=== PATIENT | male | born 1985 | race Caucasian/White ===

== ENCOUNTER 2016-11-13 17:07 | Emergency (ER) | payer MEDICAID ==
[~2016-11-13] VITALS: Ht 157.5 cm; Wt 73.0 kg
[2016-11-13 17:10] VITALS: Ht 157.5 cm; Wt 73.0 kg
--- NOTE | 2016-11-13 18:15 | RADRPT ---
PROCEDURE: XR Chest. CLINICAL INDICATION: Heart palpitations. TECHNIQUE: Single frontal view. COMPARISON: 10/12/2013. FINDINGS: The lungs are clear. The heart size is normal. There is no pleural effusion. There is no pneumothorax. IMPRESSION: 1. Normal chest radiograph. 2. No change from 10/12/2013. RPTAT: QQ .Javier Juan MD, MD Date Time Electronically viewed and signed by .Javier Juan MD, MD on 11/13/2016 18:15 .R/
--- NOTE | 2016-11-13 18:28 | ERD ---
ER Documentation Chief Complaint Date/Time DATE: 11/13/16 TIME: 18:27 Chief Complaint PALPITATIONS, HPI This is a 30-year-old male who presents to the emergency room for evaluation of heart palpitations. The patient does state that he smokes crystal methamphetamine frequently, and drinks alcohol. He states that today he also drank an energy drink. I advised the patient that all 3 of these things and causing palpitations. The patient came to the ER today for evaluation. ROS All systems reviewed and are negative except as per history of present illness. Allergies Allergies: Coded Allergies: No Known Allergy (Unverified , 10/12/13) PMhx/Soc Medical and Surgical Hx: pt denies Medical Hx, pt denies Surgical Hx Hx Alcohol Use: Yes Hx Substance Use: Yes (METH ) Hx Tobacco Use: Yes (QUIT 11/07) Smoking Status: Former smoker Physical Exam Vitals Vital Signs Date Time Temp Pulse Resp B/P Pulse Ox O2 Delivery O2 Flow Rate FiO2 11/13/16 17:10 98.1 104 18 144/84 100 Physical Exam Const: No acute distress Head: Atraumatic Eyes: Normal Conjunctiva ENT: Normal External Ears, Nose and Mouth. Neck: Full range of motion..~ No meningismus. Resp: Clear to auscultation bilaterally Cardio: Regular rate and rhythm, no murmurs Abd: Soft, non tender, non distended. Normal bowel sounds Skin: No petechiae or rashes Back: No midline or flank tenderness Ext: No cyanosis, or edema Neur: Awake and alert Psych: Normal Mood and Affect Procedures/MDM EKG: Rate/Rhythm: [Normal Sinus Rhythm] QRS, ST, T-waves: [No changes consistent w/ acute ischemia] Impression: [No evidence of ischemia or arrhythmia] Chest X-ray 1V Interpreted by me: Soft Tissue: No acute abnormalities Bones: No acute abnormalities Mediastinum/Cardiac Silhouette/Lungs: [No acute abnormalities] This 30-year-old male presents to the emergency room for heart palpitations. When I evaluated this patient he was hemodynamically stable, not tachycardic, not hypoxic. EKG reveals a normal sinus rhythm. The patient does state that he smokes crystal methamphetamine, trace alcohol, and did drink an energy drink this morning. I advised him that all 3 disease can cause palpitations and he needs to stop doing all 3 of them. The patient verbalized understanding. Chest x-ray was also obtained which does not show any pneumothorax. The patient is hemodynamically stable will be discharged home at this time. Smoking Cessation Therapy: Pt. was lectured for greater than 3 minutes on the health risks of continued smoking and the benefits of cessation. Departure Diagnosis: Primary Impression: Palpitations Additional Impressions: Tobacco abuse Tobacco abuse counseling Condition: Stable CHAPARRO WHITLEY DO November 13, 2016 18:28
== END 2016-11-13 18:56 | disposition home or self-care (01) ==
LOC: FTE 17:07
DX: R00.2 Palpitations (principal); F17.210 Nicotine dependence, cigarettes, uncomplicated; Z71.6 Tobacco abuse counseling
CPT/HCPCS: 71010; 93005; Z7502

== ENCOUNTER 2016-12-12 16:26 | Emergency (ER) | payer SELFPAY ==
[~2016-12-12] VITALS: Ht 167.6 cm; Wt 74.0 kg
[2016-12-12 16:35] VITALS: Ht 167.6 cm; Wt 74.0 kg
== END 2016-12-12 20:29 | disposition left against medical advice (07) ==
LOC: FTE 16:26
DX: Z53.21 Procedure and treatment not carried out due to patient leaving prior to being seen by health care provider (principal)

== ENCOUNTER 2016-12-14 11:38 | Emergency (ER) | payer MEDICAID ==
[~2016-12-14] VITALS: Ht 165.1 cm; Wt 74.0 kg
[2016-12-14 11:56] VITALS: Ht 165.1 cm; Wt 74.0 kg
--- NOTE | 2016-12-14 12:38 | ERD ---
ER Documentation Chief Complaint Date/Time DATE: 12/14/16 TIME: 12:36 Chief Complaint Complains of dizziness since today HPI Patient is a 31-year-old male who presents with sudden onset, intermittent, moderate palpitations described as a fast heart rate associated with shortness of breath for the last month. He states that it occurs primarily when he eats. He also reports feeling anxious. He denies depression or suicidality. Reports that he used to use crystal meth, but has not used drugs in 2 months. He denies chest pain, dizziness, dark stools, vomiting. ROS All systems reviewed and are negative except as per history of present illness. Medications Home Meds Active Scripts Famotidine* (Pepcid*) 20 Mg Tablet, 20 MG PO DAILY, #20 TAB Prov:CELSO GARCÍA MD 12/14/16 Allergies Allergies: Coded Allergies: No Known Allergy (Unverified , 10/12/13) PMhx/Soc Past medical history: None Past surgical history: None Social history: No tobacco or alcohol, former meth use Hx Alcohol Use: Yes Hx Substance Use: Yes (METH ) Hx Tobacco Use: Yes (QUIT 11/07) FmHx Family History: No coronary disease, No diabetes Physical Exam Vitals Vital Signs Date Time Temp Pulse Resp B/P Pulse Ox O2 Delivery O2 Flow Rate FiO2 12/14/16 11:56 98.6 81 20 112/75 99 Physical Exam Const: Alert, no acute distress Head: Atraumatic Eyes: Normal Conjunctiva, no pallor, no icterus ENT: Normal External Ears, Nose and Mouth. Moist mucous membranes Neck: Full range of motion..~ No meningismus. Resp: Clear to auscultation bilaterally, no wheezes, no rales Cardio: Regular rate and rhythm, no murmurs Abd: Soft, non tender, non distended. Skin: No petechiae or rashes Back: No midline or flank tenderness Ext: No cyanosis, or edema Neur: Awake and alert, cranial nerves II through XII intact bilaterally, strength and sensation full in 4 extremities. Psych: Appears slightly anxious Result Diagram: 12/14/16 1250 Results 24 hrs Laboratory Tests Test 12/14/16 12:50 Sodium Level 141mmol/L Potassium Level 4.0mmol/L Chloride Level 103mmol/L Carbon Dioxide Level 30mmol/L Anion Gap 12 Blood Urea Nitrogen 12mg/dl Creatinine 0.93mg/dl Glucose Level 78mg/dl Calcium Level 9.9mg/dl Urine Opiates Screen Negative Urine Barbiturates Negative Urine Amphetamines Screen Negative Urine Benzodiazepines Screen Negative Urine Cocaine Screen Negative Urine Cannabinoids Negative Procedures/MDM EKG read by me: Time 1243, rate 76 Rhythm: Normal sinus [place]: Normal Intervals: Normal ST-T waves: no ischemic changes Ectopy: No Q-waves: Inferior and lateral Q waves are not clearly pathologic Impression: No evidence of ischemia or arrhythmia MDM: Patient is a 31-year-old male who reports intermittent palpitations associated with eating for the last month. He acknowledges having anxiety. He reports shortness of breath associated with these episodes, but denies chest pain. Patient has history of methamphetamine abuse but has a negative tox screen. He has an EKG that shows Q waves that I believe are not pathologic. There are no ischemic changes, ectopy, or arrhythmia. The patient has an unremarkable chest x-ray and labs. I believe his symptoms are due to anxiety. I advised him on avoiding drugs, and to follow-up with a PMD or psychiatrist for anxiety. Given his association of symptoms with eating, I have considered the possibility of GERD as a cause of the patient's symptoms. I will prescribe him a trial of Pepcid. The patient is currently asymptomatic. I have advised him on return precautions for new or worsening symptoms. Departure Diagnosis: Primary Impression: Palpitations Additional Impression: Anxiety Condition: Stable CELSO GARCÍA MD Dec 14, 2016 12:38
[2016-12-14 13:17] LABS: CALCIUM 9.9 mg/dl (8.4-10.2); CREATININE 0.93 mg/dl (0.61-1.24)
--- NOTE | 2016-12-14 13:28 | RADRPT ---
PROCEDURE: Chest Radiograph. CLINICAL INDICATION: Dyspnea TECHNIQUE: Single frontal chest radiograph. COMPARISON: Chest radiograph 10/12/2013 FINDINGS: The cardiomediastinal silhouette is within normal limits. No infiltrate or effusion is seen. Th e bones are intact. IMPRESSION: 1. Unremarkable chest radiograph. RPTAT: KK .Fito Sellers MD, MD Date Time Electronically viewed and signed by .Fito Sellers MD, on 12/14/2016 13:28 .B/
[2016-12-14 13:39] LABS: BARBITURATES Negative (NEGATIVE); BENZODIAZEPINES Negative (NEGATIVE); CANNABINOIDS Negative (NEGATIVE); COCAINE Negative (NEGATIVE); OPIATES Negative (NEGATIVE)
[2016-12-14] MEDS ORDERED: FAMO-18 PO (14:44)
== END 2016-12-14 15:25 | disposition home or self-care (01) ==
LOC: FTE 11:38
DX: R00.2 Palpitations (principal); F41.9 Anxiety disorder, unspecified; Z87.891 Personal history of nicotine dependence
CPT/HCPCS: 71010; 80048; 80307; 93005

== ENCOUNTER 2017-07-28 14:54 | Emergency (ER) | END 2017-07-28 18:01 | disposition home or self-care (01) ==

== ENCOUNTER 2019-04-12 15:59 | Emergency (ER) | payer MEDICAID ==
[~2019-04-12] VITALS: Ht 167.6 cm; Wt 78.0 kg
[~2019-04-12 15:59] MED LIST: AMOX1TAB10 PO; BISM262T59 PO; FAMO-96 PO; GUAI120S25 PO; PANT40TA3 PO; PRED20TA PO
[2019-04-12 16:01] VITALS: BP 153/83; PULSE 90; RESP 18; Ht 167.6 cm; Wt 78.0 kg
[2019-04-12] MEDS ORDERED: GUAIFENESIN/DM (SR) TAB PO ONE (17:30)
[2019-04-12] MEDS ORDERED: predniSONE 20 MG TAB PO ONE (17:30)
== END 2019-04-12 17:59 | disposition home or self-care (01) ==
LOC: FTE 15:59
DX: H66.003 Acute suppurative otitis media without spontaneous rupture of ear drum, bilateral (principal); R05 Cough; Z87.891 Personal history of nicotine dependence
CPT/HCPCS: 71046; J7512; Z7502; Z7610

== ENCOUNTER 2019-04-21 12:38 | Emergency (ER) | payer MEDICAID ==
[~2019-04-21] VITALS: Wt 78.0 kg
[2019-04-21 12:51] VITALS: BP 140/75; PULSE 86; RESP 18
[2019-04-21] MEDS ORDERED: FAMOTIDINE 20 MG TAB PO ONE (15:00)
[2019-04-21] MEDS ORDERED: LIDOCAINE 2% VISC 10 ML CUP PO ONE (15:00)
== END 2019-04-21 15:18 | disposition home or self-care (01) ==
LOC: FTE 12:38
DX: R10.13 Epigastric pain (principal); Z87.891 Personal history of nicotine dependence
CPT/HCPCS: Z7502; Z7610; 99283